=== PATIENT | male | born 1960 | race Caucasian/White ===

== ENCOUNTER 2017-04-14 12:14 | Observation (INO) | payer MEDICAID ==
[2017-04-14] MEDS ORDERED: 0.9 % SODIUM CHLORIDE 1,000 ML BAG IV ONE (12:28)
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
[2017-04-14 12:45] LABS: BASO % 0.6 % (0-6); EOS % 3.5 % (0-6); GRAN % 66.5 % (47-80); HEMATOCRIT 44.8 % (42.0-52.0); HEMOGLOBIN 14.8 gm/dl (14.0-18.0); LYMPH % 20.2 % (16-45); MEAN CELL VOLUME 94.3 fl (81-97); MEAN CORPUSCULAR HEMOGLOBIN 31.2 pg (27-33); MEAN PLATELET VOLUME 10.2 fl (7.4-10.4); MONO % 9.2 % (0-9); PLATELET COUNT 182 K/uL (130-400); RED BLOOD COUNT 4.75 M/uL (4.40-5.70); RED CELL DISTRIBUTION WIDTH 14.1 % (11.5-14.5); WHITE BLOOD COUNT W/O DIFF 4.9 K/uL (4.2-12.2)
[2017-04-14 13:03] LABS: ALB/GLOB RATIO 1.5 (1.1-1.8); ALBUMIN 4.3 g/dL (4.0-5.0); ALKALINE PHOSPHATASE 98 U/L (40-129); ALT/SGPT 23 U/L (<41); AST/SGOT 21 U/L (10.0-50.0); BLOOD UREA NITROGEN 17 mg/dL (6-20); CREATININE 0.7 mg/dL (0.7-1.2); DILANTIN-PHENYTOIN 9.9 ug/mL (10-20); EST GLOMERULAR FILTRATION RATE > 60 mL/min; GLUCOSE,RANDOM 89 mg/dL (74-109); TOTAL PROTEIN 7.2 g/dL (6.6-8.7)
[2017-04-14 13:44] LABS: URINE APPEARANCE CLOUDY; URINE BILIRUBIN NEGATIVE (NEGATIVE); URINE BLOOD SMALL (NEGATIVE); URINE COLOR YELLOW; URINE GLUCOSE (UA) NEGATIVE (NEGATIVE); URINE KETONE NEGATIVE (NEGATIVE); URINE LEUKOCYTE ESTERASE MODERATE (NEGATIVE); URINE NITRITE POSITIVE (NEGATIVE); URINE PROTEIN TRACE (NEGATIVE)
[2017-04-14 13:51] LABS: URINE EPITHELIAL CELLS NONE SEEN (FEW); URINE WBC 36 - 50 (0-2/hpf)
[2017-04-14 13:52] LABS: URINE AMORPHOUS SEDIMENT 1+; URINE BACTERIA 3+
[2017-04-14] MEDS ORDERED: CEFTRIAXONE SODIUM 1 GM in 0.9 % SODIUM CHLORIDE 100ML 100 ML IVPB ONE (13:58)
[2017-04-14] MEDS ORDERED: DEXTROSE 5 %-0.45 % NACL 1,000 ML IV PRN ×2 (15:03→18:36)
[2017-04-14] MEDS ORDERED: LORAZEPAM 0.5 MG TABLET PO PRN (18:52)
[2017-04-14] MEDS ORDERED: LORAZEPAM 0.5 MG TABLET PO SCH (22:00)
[2017-04-14] MEDS: PHENYTOIN SODIUM EXTENDED 100 MG CAPSULE PO SCH (22:25)
[2017-04-14] MEDS: TMP/SMZ 160MG/800MG TAB PO SCH (22:26)
[2017-04-14] MEDS: MIRTAZAPINE 15 MG TABLET PO SCH (22:27)
[2017-04-14] MEDS: SERTRALINE HCL 50 MG TABLET PO SCH (22:28)
[2017-04-14] MEDS: QUETIAPINE FUMARATE 100 MG TABLET PO SCH (22:29)
[2017-04-14] MEDS: QUETIAPINE FUMARATE 25 MG TABLET PO SCH (22:30)
[2017-04-14] MEDS ORDERED: FLU VAC QS 2017-18 (INPT, 6MO+) 60MCG/0.5ML IM ONE (23:00)
[2017-04-15 06:54] LABS: BLOOD UREA NITROGEN 15 mg/dL (6-20); CREATININE 0.7 mg/dL (0.7-1.2); EST GLOMERULAR FILTRATION RATE > 60 mL/min; GLUCOSE,RANDOM 97 mg/dL (74-109)
[2017-04-15] MEDS: SERTRALINE HCL 50 MG TABLET PO SCH ×2 (09:29→18:26)
[2017-04-15] MEDS: TMP/SMZ 160MG/800MG TAB PO SCH (09:29)
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
[2017-04-15] MEDS ORDERED: CEFTRIAXONE SODIUM 1 GM in 0.9 % SODIUM CHLORIDE 100ML 100 ML IVPB SCH (15:00)
--- NOTE | 2017-04-15 17:55 | Discharge Note ---
VTE H&P Assessment - Risk for VTE Risk for VTE: Yes Risk Level: Low Risk Assessment Date: 04/15/17 Risk Assessment Time: 17:54 VTE Orders Placed or Will Be Placed: No VTE Reason for No Prophylaxis: Not Indicated (going home) Discharge Medications - Discharge Medications Prescriptions: Cephalexin [Keflex] 500 mg PO QID #40 cap Sulfamethoxazole/Trimethoprim [Bactrim] 1 each PO BID #20 tab Home Medications: Ambulatory Orders Quetiapine Fumarate [Seroquel] 50 mg PO QHS 04/14/17 [Last Taken 04/12/17] Cephalexin [Keflex] 500 mg PO QID #40 cap 04/15/17 [Last Taken Unknown] Sulfamethoxazole/Trimethoprim [Bactrim] 1 each PO BID #20 tab 04/15/17 [Last Taken Unknown] Discharge Note - Date Date of Discharge Note: 04/15/17 Disposition: Home, Self-Care Condition: (2) Stable Additional Instructions: follow up with [facility] in one week bactrimDS one twice a day for 10 days keflex 500 mg four times a day for 10 days Referrals: DAVID RUBALCAVA M.D. [Primary Care Provider] - Forms: Patient Portal Access Activity at Discharge: Increase Activity as Tolerated
[2017-04-15] MEDS ORDERED: CEPHALEXIN 500 MG CAPSULE PO STA (17:57)
[2017-04-15] MEDS ORDERED: TMP/SMZ 160MG/800MG TAB PO ONE (17:59)
[2017-04-15] MEDS: PHENYTOIN SODIUM EXTENDED 100 MG CAPSULE PO SCH (18:14)
[2017-04-15] MEDS: MIRTAZAPINE 15 MG TABLET PO SCH (18:23)
[2017-04-15] MEDS: QUETIAPINE FUMARATE 25 MG TABLET PO SCH (18:24)
[2017-04-15] MEDS: QUETIAPINE FUMARATE 100 MG TABLET PO SCH (18:25)
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
== END 2017-04-15 19:19 | disposition home or self-care (01) ==
LOC: ER 12:14 → INTOOBSV 18:10 → MEDSURG 18:10
PROVIDERS: ADMIT Emergency Medicine; ATTEND Emergency Medicine
DX: N39.0 Urinary tract infection, site not specified (principal); G40.909 Epilepsy, unspecified, not intractable, without status epilepticus; F20.0 Paranoid schizophrenia; Z87.820 Personal history of traumatic brain injury; F79 Unspecified intellectual disabilities; G81.90 Hemiplegia, unspecified affecting unspecified side
CPT/HCPCS: 99285 ×2; 96365; 96375; 96361; 83735; 85025; 80048; 80053; 81001; 84443; 80185; 80156; 90686; G0378 ×2; J3490 ×2; 99217; 99220; J7030

== ENCOUNTER 2018-05-29 10:13 | Observation (INO) | payer MEDICARE, MEDICAID ==
[2018-05-29] MEDS ORDERED: 0.9 % SODIUM CHLORIDE 1,000 ML BAG IV ONE (10:33)
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
[2018-05-29 10:56] LABS: EOS % 3.1 % (0-6); HEMATOCRIT 44.7 % (42.0-52.0); HEMOGLOBIN 14.7 gm/dl (14.0-18.0); MEAN CELL VOLUME 94.7 fl (81-97); MEAN CORPUSCULAR HEMOGLOBIN 31.1 pg (27-33); MEAN CORPUSCULAR HGB CONC 32.9 g/dl (32-36); MEAN PLATELET VOLUME 10.4 fl (7.4-10.4); MONO % 8.9 % (0-9); PLATELET COUNT 196 K/uL (130-400); RED BLOOD COUNT 4.72 M/uL (4.40-5.70); RED CELL DISTRIBUTION WIDTH 14.5 % (11.5-14.5); WHITE BLOOD COUNT W/O DIFF 5.2 K/uL (4.2-12.2)
[2018-05-29 11:05] LABS: BLOOD UREA NITROGEN 17 mg/dL (6-20)
[2018-05-29 11:06] LABS: CREATININE 0.8 mg/dL (0.7-1.2); EST GLOMERULAR FILTRATION RATE > 60 mL/min; TOTAL PROTEIN 7.4 g/dL (6.6-8.7)
[2018-05-29 11:08] LABS: GLUCOSE,RANDOM 87 mg/dL (74-109)
[2018-05-29 11:11] LABS: ALBUMIN 4.4 g/dL (4.0-5.0); ALKALINE PHOSPHATASE 128 U/L (40-129); ALT/SGPT 11 U/L (<41); AST/SGOT 17 U/L (10.0-50.0)
[2018-05-29 11:13] LABS: URINE APPEARANCE CLOUDY; URINE BILIRUBIN NEGATIVE (NEGATIVE); URINE BLOOD NEGATIVE (NEGATIVE); URINE COLOR YELLOW; URINE GLUCOSE (UA) NEGATIVE (NEGATIVE); URINE KETONE NEGATIVE (NEGATIVE); URINE LEUKOCYTE ESTERASE LARGE (NEGATIVE); URINE NITRITE POSITIVE (NEGATIVE); URINE PROTEIN NEGATIVE (NEGATIVE)
[2018-05-29 11:13] LABS: BILIRUBIN,DIRECT < 0.2 mg/dL (0-0.3)
[2018-05-29] MEDS ORDERED: CEFTRIAXONE SODIUM 1 GM in 0.9 % SODIUM CHLORIDE 100ML 100 ML IVPB ONE (11:17)
[2018-05-29 11:21] LABS: URINE BACTERIA 4+; URINE EPITHELIAL CELLS NONE SEEN (FEW); URINE RBC NONE SEEN (NONE SEEN); URINE WBC 36 - 50 (0-2/hpf)
[2018-05-29] MEDS ORDERED: ACETAMINOPHEN 500 MG TABLET PO PRN (12:45)
[2018-05-29] MEDS: 0.9 % SODIUM CHLORIDE 1000ML 1,000 ML IV PRN ×2 (13:19→23:19)
[2018-05-29] MEDS: CEFTRIAXONE SODIUM 1 GM in 0.9 % SODIUM CHLORIDE 100ML 100 ML IVPB SCH (13:19)
[2018-05-29] MEDS: GABAPENTIN 300 MG CAPSULE PO SCH ×2 (13:21→21:27)
[2018-05-29] MEDS ORDERED: ZINC OXIDE 28.35 GM TUBE TOP ONE (17:18)
[2018-05-29] MEDS ORDERED: ZINC OXIDE 28.35 GM TUBE TOP PRN (18:56)
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
[2018-05-29] MEDS: SERTRALINE HCL 50 MG TABLET PO SCH (21:28)
[2018-05-29] MEDS: QUETIAPINE FUMARATE 100 MG TABLET PO SCH (21:28)
[2018-05-29] MEDS: LORAZEPAM 0.5 MG TABLET PO SCH (21:28)
[2018-05-29] MEDS: BACLOFEN 10 MG TABLET PO SCH (21:28)
[2018-05-30] MEDS: CEFTRIAXONE SODIUM 1 GM in 0.9 % SODIUM CHLORIDE 100ML 100 ML IVPB SCH ×2 (00:11→12:08)
--- NOTE | 2018-05-30 10:09 | Physician Progress Note ---
Subjective - Date Date of Physician Progress Note: 05/30/18 - Subjective Subjective Comment: Pt denies any complaints today. Nurse states that he is more lucid and cooperative today. He is eating and taking meds without issue. Objective - Vital Signs Vital Signs: Vital Signs - Last 24 Hrs Temp Pulse Pulse Resp BP BP Pulse Ox 05/30/18 09:00 18 05/30/18 08:00 98.7 F 89 18 85/57 95 05/30/18 04:00 98.9 F 88 16 99/61 94 L 05/30/18 00:00 99.2 F 90 16 90/62 95 05/29/18 21:00 92 H 05/29/18 20:00 98.9 F 92 H 17 114/80 94 L 05/29/18 16:00 97.3 F L 99 H 16 115/78 98 05/29/18 13:31 18 05/29/18 12:00 98.2 F 57 L 18 140/100 100 05/29/18 10:22 97.4 F L 78 16 114/82 95 - General General Appearance: Alert, Oriented x3 (place, self), Cooperative, No acute distress (The patient is answering questions appropriately at times but does not have insight to his medical issues.) Limitations: Physical limitation (contractures of the feet) - Head Head exam: Atraumatic - Eye Eye exam: Normal appearance, EOMI. negative: Conjunctival injection - ENT ENT exam: Mucous membranes moist Ear exam: Normal external inspection Nasal Exam: Normal inspection Mouth exam: Normal external inspection, Tongue normal (pt follows commands well) Throat exam: Normal inspection. negative: Tonsillar erythema, Tonsillar exudate - Neck Neck exam: Normal inspection, Full ROM. negative: Tenderness - Respiratory Respiratory exam: Normal lung sounds bilaterally. negative: Respiratory distress - Cardiovascular Cardiovascular Exam: Regular rate, Normal rhythm, Normal heart sounds - GI/Abdominal GI/Abdominal exam: Soft, Normal bowel sounds. negative: Tenderness - Rectal Rectal exam: Deferred - exam: Deferred - Extremities Extremities exam: negative: Normal inspection (chronic contractures. The patient does not walk.), Pedal edema - Neurological Neurological exam: Abnormal gait, Alert, Motor sensory deficit (chronic.), Oriented X3. negative: Normal gait - Psychiatric Psychiatric exam: negative: Anxious, Suicidal ideation - Skin Skin exam: negative: Rash Type of lesion: abrasion (superficial ulceration of the lateral R foot with small ring of surrounding erythema) Assessment and Plan - Assessment and Plan (1) Acute encephalopathy Current Visit: Yes Status: Acute Base Code: G93.40 - ENCEPHALOPATHY, UNSPECIFIED Priority: High Comment: - Improving with treatment. - 2/2 to UTI (2) UTI (urinary tract infection) Current Visit: Yes Status: Acute Qualifiers: Urinary tract infection type: site unspecified Hematuria presence: with hematuria Qualified Code(s): N39.0 - Urinary tract infection, site not specified; R31.9 - Hematuria, unspecified Base Code: N39.0 - URINARY TRACT INFECTION, SITE NOT SPECIFIED Priority: High Comment: - Rocephin daily - IVF @ 100ml/hr - Cx pending. (3) Subtherapeutic serum dilantin level Current Visit: Yes Status: Acute Base Code: R78.89 - FINDING OF OTH SUBSTANCES, NOT NORMALLY FOUND IN BLOOD Priority: High Comment: - Unclear if pt was taking more meds than prescribed given AMS. - Hold dilantin and trend levels. - Back in normal range today but high end, will restart dilantin tomorrow AM once level rechecked. (4) DVT prophylaxis Current Visit: Yes Status: Acute Base Code: [id number] - Priority: High Comment: - moderate risk, will try SCD's if tolerated. - Disposition Disposition: pending improvement in sx. Results - Labs Result Diagrams: 05/29/18 10:50 05/29/18 10:50 Labs Last 24 Hours: Laboratory Results - last 24 hr 05/29/18 05/29/18 05/29/18 10:50 10:50 10:50 WBC 5.2 RBC 4.72 Hgb 14.7 Hct 44.7 MCV 94.7 MCH 31.1 MCHC 32.9 RDW 14.5 Plt Count 196 MPV 10.4 Gran % 66.0 Lymphocytes % 21.0 Monocytes % 8.9 Eosinophils % 3.1 Basophils % 1.0 Sodium 145 Potassium 3.7 Chloride 103 Carbon Dioxide 27.0 Anion Gap 15.0 BUN 17 Creatinine 0.8 Estimated GFR > 60 Random Glucose 87 Calcium 9.9 Total Bilirubin 0.30 Direct Bilirubin < 0.2 AST 17 ALT 11 Alkaline Phosphatase 128 Total Protein 7.4 Albumin 4.4 Urine Color Urine Appearance Urine pH Ur Specific [place] Urine Protein Urine Glucose (UA) Urine Ketones Urine Blood Urine Nitrite Urine Bilirubin Urine Urobilinogen Ur Leukocyte Esterase Urine RBC Urine WBC Ur Epithelial Cells Urine Bacteria Phenytoin 29.1 H Carbamazepine Cancelled 05/29/18 05/30/18 11:05 05:35 WBC RBC Hgb Hct MCV MCH MCHC RDW Plt Count MPV Gran % Lymphocytes % Monocytes % Eosinophils % Basophils % Sodium Potassium Chloride Carbon Dioxide Anion Gap BUN Creatinine Estimated GFR Random Glucose Calcium Total Bilirubin Direct Bilirubin AST ALT Alkaline Phosphatase Total Protein Albumin Urine Color Yellow Urine Appearance Cloudy Urine pH 6.5 Ur Specific [place] 1.025 Urine Protein Negative Urine Glucose (UA) Negative Urine Ketones Negative Urine Blood Negative Urine Nitrite Positive H Urine Bilirubin Negative Urine Urobilinogen 1.0 Ur Leukocyte Esterase Large H Urine RBC None seen Urine WBC 36 - 50 Ur Epithelial Cells None seen Urine Bacteria 4+ Phenytoin 19.4 Carbamazepine DVT/PE Assessment - Risk for VTE Risk for VTE: No Risk Level: Moderate Risk Assessment Date: 05/29/18 Risk Assessment Time: 21:47 VTE Orders Placed or Will Be Placed: Yes - Active Medicaitons Current Medications: Current Medications Acetaminophen (Tylenol 500mg Tab) 500 mg PO Q6H PRN PRN Reason: PAIN - MILD(1-4)/FEVER Baclofen (Lioresal) 10 mg PO BID [facility] Last Admin: 05/29/18 21:28 Dose: 10 mg Gabapentin (Neurontin) 300 mg PO BID [facility] Last Admin: 05/29/18 21:27 Dose: 300 mg Sodium Chloride () 1,000 mls @ 100 mls/hr IV .Q10H PRN PRN Reason: LARGE VOLUME IV Last Admin: 05/29/18 23:19 Dose: 100 mls/hr Ceftriaxone Sodium 1 gm/ (Sodium Chloride) 100 mls @ 200 mls/hr IVPB Q12H [facility] Stop: 06/03/18 12:46 Last Admin: 05/30/18 00:11 Dose: 200 mls/hr Lorazepam (Ativan) 1 mg PO BID [facility] Last Admin: 05/29/18 21:28 Dose: 1 mg Quetiapine Fumarate (Seroquel) 100 mg PO DAILY [facility] Quetiapine Fumarate (Seroquel) 100 mg PO BID [facility] Last Admin: 05/29/18 21:28 Dose: 100 mg Sertraline HCl (Zoloft) 100 mg PO BID [facility] Last Admin: 05/29/18 21:28 Dose: 100 mg Zinc Oxide (Desitin) 10 gm TOP ASDIR PRN PRN Reason: RASH Last Admin: 05/29/18 19:00 Dose: 10 gm AMI Plan - Labs Result Diagrams: 05/29/18 10:50 05/29/18 10:50
[2018-05-30] MEDS: SERTRALINE HCL 50 MG TABLET PO SCH ×2 (10:24→22:38)
[2018-05-30] MEDS: QUETIAPINE FUMARATE 100 MG TABLET PO SCH ×3 (10:24→22:38)
[2018-05-30] MEDS: BACLOFEN 10 MG TABLET PO SCH ×2 (10:25→22:38)
[2018-05-30] MEDS: GABAPENTIN 300 MG CAPSULE PO SCH ×2 (10:25→22:38)
[2018-05-30] MEDS: LORAZEPAM 0.5 MG TABLET PO SCH ×2 (10:25→22:37)
[2018-05-31] MEDS: CEFTRIAXONE SODIUM 1 GM in 0.9 % SODIUM CHLORIDE 100ML 100 ML IVPB SCH (05:59)
[2018-05-31 06:59] LABS: BASO % 0.9 % (0-6); EOS % 4.6 % (0-6); GRAN % 58.6 % (47-80); HEMATOCRIT 41.1 % (42.0-52.0); HEMOGLOBIN 13.1 gm/dl (14.0-18.0); LYMPH % 26.1 % (16-45); MEAN CELL VOLUME 96.7 fl (81-97); MEAN CORPUSCULAR HEMOGLOBIN 30.8 pg (27-33); MEAN CORPUSCULAR HGB CONC 31.9 g/dl (32-36); MEAN PLATELET VOLUME 10.1 fl (7.4-10.4); MONO % 9.8 % (0-9); PLATELET COUNT 162 K/uL (130-400); RED BLOOD COUNT 4.25 M/uL (4.40-5.70); RED CELL DISTRIBUTION WIDTH 14.3 % (11.5-14.5); WHITE BLOOD COUNT W/O DIFF 4.6 K/uL (4.2-12.2)
[2018-05-31 07:19] LABS: BLOOD UREA NITROGEN 9 mg/dL (6-20); CREATININE 0.6 mg/dL (0.7-1.2); EST GLOMERULAR FILTRATION RATE > 60 mL/min; GLUCOSE,RANDOM 109 mg/dL (74-109)
[2018-05-31] MEDS: 0.9 % SODIUM CHLORIDE 1000ML 1,000 ML IV PRN (08:12)
[2018-05-31] MEDS: SERTRALINE HCL 50 MG TABLET PO SCH (10:17)
[2018-05-31] MEDS: QUETIAPINE FUMARATE 100 MG TABLET PO SCH ×2 (10:17→11:13)
[2018-05-31] MEDS: GABAPENTIN 300 MG CAPSULE PO SCH (10:18)
[2018-05-31] MEDS: BACLOFEN 10 MG TABLET PO SCH (10:18)
[2018-05-31] MEDS: LORAZEPAM 0.5 MG TABLET PO SCH (10:18)
[2018-05-31] MEDS ORDERED: PHENYTOIN SODIUM EXTENDED 100 MG CAPSULE PO ONE (11:30)
[2018-05-31] MEDS ORDERED: CEFTRIAXONE 1GM/50ML BAG 1 GM/50 ML BAG IVPB SCH (13:00)
--- NOTE | 2018-05-31 14:04 | Discharge Summary ---
Providers Discharge Summary Date: 05/31/18 Date of admission: 05/29/18 11:53 Expected Date of Discharge: 05/31/18 Attending physician: CADEN VICENTE Primary care physician: LANDY AGUAYO M.D. Physical Exam - Vital Signs Vital Signs: Vital Signs - Last 24 Hrs Temp Pulse Resp BP BP Pulse Ox 05/31/18 09:00 70 16 05/31/18 04:00 97.5 F L 70 16 145/96 98 05/30/18 20:00 97.6 F 77 17 127/78 97 05/30/18 15:39 98.4 F 94/64 - General General Appearance: Alert, Oriented x3 (place, self), Cooperative, No acute distress (The patient is answering questions appropriately at times but does not have insight to his medical issues.) Limitations: Physical limitation (contractures of the feet) - Head Head exam: Atraumatic - Eye Eye exam: Normal appearance, EOMI. negative: Conjunctival injection - ENT ENT exam: Mucous membranes moist Ear exam: Normal external inspection Nasal Exam: Normal inspection Mouth exam: Normal external inspection, Tongue normal (pt follows commands well) Throat exam: Normal inspection. negative: Tonsillar erythema, Tonsillar exudate - Neck Neck exam: Normal inspection, Full ROM. negative: Tenderness - Respiratory Respiratory exam: Normal lung sounds bilaterally. negative: Respiratory distress - Cardiovascular Cardiovascular Exam: Regular rate, Normal rhythm, Normal heart sounds - GI/Abdominal GI/Abdominal exam: Soft, Normal bowel sounds. negative: Tenderness - Rectal Rectal exam: Deferred - exam: Deferred - Extremities Extremities exam: negative: Normal inspection (chronic contractures. The patient does not walk.), Pedal edema - Neurological Neurological exam: Abnormal gait, Alert, Motor sensory deficit (chronic.), Oriented X3. negative: Normal gait - Psychiatric Psychiatric exam: negative: Anxious, Suicidal ideation - Skin Skin exam: negative: Rash Type of lesion: abrasion (superficial ulceration of the lateral R foot with small ring of surrounding erythema) Hospitalization - Hospitalization Admission Diagnosis: 1. Acute Paranoia with UTI and Dilantin Toxicity. - Problem List/Discharge Diagnosis (1) Acute encephalopathy Current Visit: Yes Status: Acute Base Code: G93.40 - ENCEPHALOPATHY, UNSPECIFIED Comment: - Seems to be back to baseline (2) UTI (urinary tract infection) Current Visit: Yes Status: Acute Discharge Diagnosis: Urinary tract infection type: site unspecified Hematuria presence: with hematuria Qualified Code(s): N39.0 - Urinary tract infection, site not specified; R31.9 - Hematuria, unspecified Base Code: N39.0 - URINARY TRACT INFECTION, SITE NOT SPECIFIED Comment: - Rocephin daily - Cx shows e.coli, sensitivities pending. (3) Subtherapeutic serum dilantin level Current Visit: Yes Status: Acute Base Code: R78.89 - FINDING OF OTH SUBSTANCES, NOT NORMALLY FOUND IN BLOOD Comment: - Unclear if pt was taking more meds than prescribed given AMS. - held dilantin x 2 days and now back in low therapeutic range, will administer usual dose today and recheck level in 2 days. (4) DVT prophylaxis Current Visit: Yes Status: Acute Base Code: [id number] - Comment: - moderate risk, will try SCD's if tolerated. - Disposition Home. - Hospitalization Course Disposition: Home Health Service Hospital Course: PMHx: seizures, contractures, cognitive delay ED course: 05/29/18 Pt is a poor historian and cannot give an appropriate history 2/2 to cognitive delay and AMS. Per ED note: Pt was brought to the ED by his machine stamper for acting different x 4 days. He is acting paranoid and stating that food and medicine are poison. He has not been eating, drinking, or taking his medications as prescribed 2/2 to this AMS. He has presented this way to the ED in the past and was found to have a UTI. Once treated his AMS usually resolves and he takes his medications as prescribed. Vitals: T 97.4, P 78, BP 114/84, RR 16, O2 95% RA Labs: CBC/CMP wnl. UA + for infection, Phenytoin level elevated at 29, Cx ordered. Given: rocephin, 1L bolus Hospital course: 05/29/18-05/31/18 Pt's paranoia and AMS improved over 2 days and upon discharge was taking medications and eating without issue. His phenytoin was held for two days and was at low therapeutic range of 15. It is unclear if he was taking more than prescribed by accident 2/2 to AMS or not. Prior to D/C he was given his usual home dose of phenytoin. His urine cx did come back + for E.coli but sensitivities are still pending. Given improvement in symptoms will send home on oral cefdinir, will call in meds tomorrow if sensitivities show resistance. PCP to follow up on: - rpt phenytoin level in 2 days, adjust dose if needed. - Decub ulcer on the R lateral foot and sacral area Abnormal Labs: Abnormal Lab Results 05/29/18 05/29/18 05/31/18 Range/Units 10:50 11:05 06:45 RBC 4.25 L (4.40-5.70) M/uL Hgb 13.1 L (14.0-18.0) gm/dl Hct 41.1 L (42.0-52.0) % MCHC 31.9 L (32-36) g/dl Monocytes % 9.8 H (0-9) % Creatinine (0.7-1.2) mg/dL Calcium (8.6-10.0) mg/dL Urine Nitrite Positive H (NEGATIVE) Ur Leukocyte Esterase Large H (NEGATIVE) Phenytoin 29.1 H (10.0-20.0) ug/mL 05/31/18 Range/Units 06:45 RBC (4.40-5.70) M/uL Hgb (14.0-18.0) gm/dl Hct (42.0-52.0) % MCHC (32-36) g/dl Monocytes % (0-9) % Creatinine 0.6 L (0.7-1.2) mg/dL Calcium 8.4 L (8.6-10.0) mg/dL Urine Nitrite (NEGATIVE) Ur Leukocyte Esterase (NEGATIVE) Phenytoin (10.0-20.0) ug/mL Condition at Discharge: (2) Stable VTE Discharge VTE Reason For No Overlap Therapy: Not Indicated Discharge Medications - Discharge Medications Prescriptions: Cefdinir [Omnicef] 300 mg PO BID 5 Days #10 cap Home Medications: Ambulatory Orders Baclofen 10 mg PO BID 05/29/18 [Last Taken 05/28/18] Cefdinir [Omnicef] 300 mg PO BID 5 Days #10 cap 05/31/18 [Last Taken Unknown] Quetiapine Fumarate [Seroquel] 100 mg PO BID tablet 05/31/18 [Last Taken Unknown] Discharge Plan - Discharge Instructions Activity at Discharge: Increase Activity as Tolerated Diet at Discharge: Advance to Usual Diet Dressing Change: As needed (per PCP for decubitus ulcer on sacrum and foot) Instructions: How to Prevent Pressure Ulcers (GEN), Urinary Traction Infection in Older Adults (GEN) Additional Instructions: Start Cefdinir starting with first dose tonight before bed for UTI. Dilantin level needs to be redrawn in 2 days and sent to PCP. Adjust per doctor' s discretion. Unclear what home dose of seroquel was. Please continue usual home dose of seroquel and other meds. Please make sure that he is changing position every 2 hours at least to prevent worsening of his pressure ulcer on his sacrum and R foot. PCP to come and check on patient this week. Quality Measures - Quality Measures Quality Measures: Documentation of Current Medications in Medical Record, Screening for High Blood Pressure and F/U Documented - Current Medications Quality Measure: Measure #130: Documentation of Current Medications Documentation of Current Medications: <Current Medications Documented/Reviewed> [[id number]] - Blood Pressure Screening Quality Measure: Screening for High Blood Pressure and Follow-Up Documented Does Patient Have Any of the Following: No Blood Pressure Classification: Normal BP Reading Systolic Measurement: 94 Diastolic Measurement: 64 Screening for High Blood Pressure: < Normal BP, F/U Not Required > [G8783] - Elder Abuse Suspicion Index EASI Reference Information: Willy PARSONS, Dionna C, Netta D, Rubina Goldsmith.Development and validation of a tool to assist physicians identification of elder abuse: The Elder Abuse Suspicion Index (EASI ). Journal of Elder Abuse and Neglect, 2008; 20 (3): 276-300.
== END 2018-05-31 17:45 | disposition home health service (06) ==
LOC: ER 10:13 → MEDSURG 11:53
PROVIDERS: ADMIT Family Medicine; ATTEND Internal Medicine
DX: N39.0 Urinary tract infection, site not specified (principal); T42.0X1A Poisoning by hydantoin derivatives, accidental (unintentional), initial encounter; G93.40 Encephalopathy, unspecified; Z91.14 Patient's other noncompliance with medication regimen; R78.89 Finding of other specified substances, not normally found in blood; R56.9 Unspecified convulsions; M62.40 Contracture of muscle, unspecified site; L89.611 Pressure ulcer of right heel, stage 1; G62.9 Polyneuropathy, unspecified; Z87.891 Personal history of nicotine dependence; Z74.01 Bed confinement status
CPT/HCPCS: 80048; 80076; 80185; 81001; 85025; 96361; 96365; 99217; 99220; 99226; 99285; J0696; J7030